=== PATIENT | female | born 1985 | race Two or more races ===

== ENCOUNTER 2019-03-21 16:56 | Observation (INO) | payer MEDICAID ==
[~2019-03-21] VITALS: Ht 154.9 cm; Wt 79.8 kg
[2019-03-21] MEDS ORDERED: LACTATED RINGER'S 1,000 ML IV ONE (18:15)
[2019-03-21] MEDS ORDERED: LACTATED RINGER'S 1,000 ML IV SCH (18:15)
[2019-03-21] MEDS ORDERED: TERBUTALINE SULFATE 1 MG/ML 1ML VIAL SC ONE (20:28)
[2019-03-21] MEDS ORDERED: NIFEdipine 10 MG CAP PO ONE (21:00)
[2019-03-21] MEDS ORDERED: NIFEdipine 10 MG CAP ONE (21:09)
[2019-03-22] MEDS ORDERED: TERBUTALINE SULFATE 1 MG/ML 1ML VIAL SC ONE (10:00)
== END 2019-03-21 21:37 | disposition home or self-care (01) | DRG 566 ==
LOC: LDRP 16:56
PROVIDERS: ADMIT Specialist; ATTEND Specialist
DX: O62.9 Abnormality of forces of labor, unspecified (principal); O34.219 Maternal care for unspecified type scar from previous cesarean delivery; Z3A.38 38 weeks gestation of pregnancy
CPT/HCPCS: 59025; 81002; 96372; G0378; J3105; 96365; 96366